=== PATIENT | female | born 1975 | race Caucasian/White ===

== ENCOUNTER 2017-01-04 01:56 | Observation (INO) | payer OTHER ==
[~2017-01-04] VITALS: Ht 167.6 cm; Wt 117.9 kg
[~2017-01-04 01:56] MED LIST: LEVAQUIN500 MG PO; TYLENOL 325MG325 MG PO
[2017-01-04 03:37] LABS: HEMOGLOBIN 14.8 gm/dl (12.3-15.3); RED BLOOD COUNT 5.24 M/UL (4.00-5.10); WHITE BLOOD COUNT 13.5 K/UL (4.5-11.0)
[2017-01-04 03:49] LABS: BUN/CREATININE RATIO 16 (0-10)
[2017-01-04 15:41] LABS: WHITE BLOOD COUNT 11.2 K/UL (4.5-11.0)
[2017-01-04 15:54] LABS: BUN/CREATININE RATIO 14 (0-10)
[2017-01-04 16:01] LABS: HEMOGLOBIN 12.3 gm/dl (12.3-15.3); RED BLOOD COUNT 4.33 M/UL (4.00-5.10)
[2017-01-05 04:47] LABS: HEMOGLOBIN 10.9 gm/dl (12.3-15.3); RED BLOOD COUNT 3.98 M/UL (4.00-5.10)
[2017-01-05 04:48] LABS: WHITE BLOOD COUNT 6.5 K/UL (4.5-11.0)
[2017-01-05 05:07] LABS: BUN/CREATININE RATIO 11 (0-10)
[2017-01-06 05:48] LABS: HEMOGLOBIN 12.4 gm/dl (12.3-15.3); WHITE BLOOD COUNT 7.2 K/UL (4.5-11.0)
[2017-01-06 05:49] LABS: RED BLOOD COUNT 4.43 M/UL (4.00-5.10)
[2017-01-06 06:08] LABS: BUN/CREATININE RATIO 13 (0-10)
[2017-01-07] MEDS ORDERED: LEVAQUIN500 MG PO (09:46)
[2017-01-07] MEDS ORDERED: FLAGYL500 MG PO (09:47)
[2017-01-07] MEDS ORDERED: ZOFRAN4 MG PO (09:49)
== END 2017-01-07 11:16 | disposition home or self-care (01) ==
LOC: ER1 01:56 → ZEROF 05:08 → M/S 05:08
PROVIDERS: Emergency Medicine; Physician Assistant; ADMIT Family Medicine
DX: K52.9 Noninfective gastroenteritis and colitis, unspecified (principal); N39.0 Urinary tract infection, site not specified; E87.2 Acidosis; Z68.41 Body mass index [BMI] 40.0-44.9, adult; R21 Rash and other nonspecific skin eruption; R11.2 Nausea with vomiting, unspecified; E66.9 Obesity, unspecified; Z88.5 Allergy status to narcotic agent; Z83.3 Family history of diabetes mellitus; Z82.49 Family history of ischemic heart disease and other diseases of the circulatory system; Z80.1 Family history of malignant neoplasm of trachea, bronchus and lung; Z80.3 Family history of malignant neoplasm of breast; Z83.2 Family history of diseases of the blood and blood-forming organs and certain disorders involving the immune mechanism; Z88.8 Allergy status to other drugs, medicaments and biological substances
CPT/HCPCS: 36415; 71010; 80048; 80053; 81001; 82570; 83497; 83605; 83690; 84550; 84703; 85025; 85027; 86039; 86140; 86431; 87040; 87045; 87046; 87086; 89055; 96365; 96375; 99285; G0378; J1200; J1956; J2270; J2405; J7030; J7050; Q9962

== ENCOUNTER → 2017-01-21 | Outpatient (CLI) | payer OTHER ==
[~2017-01-21] MED LIST changes: +FLAGYL500 MG PO; +ZOFRAN4 MG PO
== END ==
LOC: LAB 17:45
DX: Z91.018 Allergy to other foods (principal)
CPT/HCPCS: 36415; 82785; 86003

== ENCOUNTER 2017-01-22 00:24 | Emergency (ER) | payer OTHER | END 2017-01-22 05:25 | disposition home or self-care (01) | LOC: ER1 00:24 | DX: T78.40XA Allergy, unspecified, initial encounter (principal); L29.9 Pruritus, unspecified; Z88.5 Allergy status to narcotic agent; Z91.018 Allergy to other foods | CPT/HCPCS: 96361; 96365; 96375; 99282; J1200; J2405; J2930 ==